=== PATIENT | female | born 1980 | race Asian ===

== ENCOUNTER → 2016-10-23 | Outpatient (CLI) | payer OTHER ==
[~2016-10-23] MED LIST: BUPR-79 PO; BUPRTAB51 PO; CARI350T28 PO; FLUT0.15; GUAI-13 PEG; LISD50CA4 PO; LORA-741 PO; NORE0.353 PO; OXYC-57 PO; PRENTAB26 PO; PRVHFAIN
[2016-10-23 14:36] LABS: HEMATOCRIT 36.4 % (37-47)
[2016-10-23 18:29] LABS: GTGD 50 Grams
[2016-10-23 18:42] LABS: URINE APPEARANCE CLEAR (CLEAR); URINE BILIRUBIN NEG (NEG); URINE COLOR DK YELLOW; URINE EPITHELIAL CELL AUTO >30 /lpf (0-5); URINE NITRITE NEG (NEG); URINE PH 6.5 (4.5-7.5); URINE SPECIFIC GRAVITY 1.023 (1.000-1.030); UROBILINOGEN NEG (NEG)
[2016-10-23 18:45] LABS: MANUAL MICROSCOPIC REQUIRED? NO; REVIEW REQ? NO
== END | disposition home or self-care (01) ==
LOC: C.LAB1850 14:01
PROVIDERS: ATTEND Obstetrics & Gynecology
DX: Z34.03 Encounter for supervision of normal first pregnancy, third trimester (principal)

== ENCOUNTER → 2016-11-20 | Outpatient (CLI) | payer OTHER ==
[2016-11-21 15:40] LABS: LEAD BLOOD LESS THAN 1 MCG/DL (0-9)
== END | disposition home or self-care (01) ==
LOC: C.LAB1850 10:29
PROVIDERS: ATTEND Obstetrics & Gynecology
DX: Z34.03 Encounter for supervision of normal first pregnancy, third trimester (principal); Z77.011 Contact with and (suspected) exposure to lead

== ENCOUNTER → 2016-12-18 | Outpatient (CLI) | payer OTHER | END | disposition home or self-care (01) | LOC: C.LABSPEC 13:23 | PROVIDERS: ATTEND Obstetrics & Gynecology | DX: Z34.03 Encounter for supervision of normal first pregnancy, third trimester (principal) ==

== ENCOUNTER 2017-01-08 05:47 | Inpatient (IN) | payer OTHER ==
--- NOTE | 2017-01-07 10:59 | PAT Medication Instructions ---
Service Date Jan 07, 2017. Current Home Medication List Bupropion (Wellbutrin Sr), 150 MG PO HS Guaifenesin (Tussin), 1 DOSE PEG PRN Multivit/Min/Iron/Fol Ac/Pren ( Vitamin), 1 TAB PO QPM Medication Instructions For Your Scheduled Surgery - Hold the following medications the morning of surgery: Guaifenesin (Tussin), 1 DOSE PEG PRN - Take the following medications as scheduled the night before surgery: Multivit/Min/Iron/Fol Ac/Pren ( Vitamin), 1 TAB PO QPM Guaifenesin (Tussin), 1 DOSE PEG PRN Bupropion (Wellbutrin Sr), 150 MG PO HS If you have any questions please call us at [phone] (Awa Herrera PA-C) or [phone] or [phone]
[2017-01-07 11:51] LABS: BASO % 0.2 %; BASO ABS # 0.02 K/uL (0-0.2); COMPLETE YES; EOS % 1.4 %; HEMATOCRIT 36.9 % (37-47); IG% 1.8 %; LYMPH % 16.6 %; LYMPH ABS # 1.69 K/uL (1.2-3.4); MEAN CELL VOLUME 81.5 fL (80-100); MEAN CORPUSCULAR HEMOGLOBIN 27.8 pg (25-34); MEAN CORPUSCULAR HGB CONC 34.1 g/dl (32-36); MEAN PLATELET VOLUME 11.4 fL (7.4-10.4); MONO % 5.3 %; NEUT % 74.7 %; PLATELET COUNT 177 K/uL (130-400); RED BLOOD COUNT 4.53 M/uL (4.2-5.4); WHITE BLOOD COUNT 10.18 K/uL (4.8-10.8)
--- NOTE | 2017-01-07 14:46 | HISTORY & PHYSICAL EXAMINATION ---
DATE OF ADMISSION: 01/08/2017 HISTORY OF PRESENT ILLNESS: Duane is . She is scheduled for repeat section on 01/08/2017. She has had 1 prior and does not wish to labor. She will be 39 weeks and 1 day at the time of her procedure. Her current has been uncomplicated with normal ultrasound and other testing. PAST HISTORY: Prior section in 2012 for failure to progress. PAST MEDICAL HISTORY: She has a history of anxiety and adult ADHD. MEDICATIONS: Adderall, Wellbutrin, ondansetron. DRUG ALLERGIES: CODEINE DERIVATIVES, more of a reaction as she gets vomiting. SOCIAL HISTORY: Nonsmoker, nondrinker. FAMILY HISTORY: Noncontributory. REVIEW OF SYSTEMS: Negative. PHYSICAL EXAMINATION: VITAL SIGNS: Stable. She is afebrile. Weight is 181. CHEST EXAMINATION: Clear. CARDIOVASCULAR EXAMINATION: Normal rate and rhythm. No audible murmur. ABDOMINAL EXAMINATION: Gravid. heart rate tones 140. CERVIX: Not checked. IMPRESSION AND PLAN: Repeat section. Discussed risks, benefits and alternatives. Discussed the option of labor. She declines this. Discussed risks including risks of bleeding, infection, injury to bowel, bladder, ureter, vessels, deep vein thrombosis and pulmonary embolus. Discussed increased chance of internal organ injury with prior sections if there are significant adhesions and discussed all of her questions as well. Thus, will make plans for low segment transverse section on 01/08/2017.
[2017-01-08] VITALS (16 sets, daily range): BP systolic 91–101; BP diastolic 50–60; PULSE 69–81; TEMP 36.5–36.8; O2SAT 92–100; Ht 165.1 cm; Wt 82.3 kg
[~2017-01-08] VITALS: Ht 165.1 cm; Wt 82.3 kg
[~2017-01-08 05:47] MED LIST changes: -BUPRTAB51 PO; -CARI350T28 PO; -FLUT0.15; -LISD50CA4 PO; -LORA-741 PO; -NORE0.353 PO; -OXYC-57 PO; -PRVHFAIN
[2017-01-08] MEDS ORDERED: CEFAZOLIN IV 2,000 MG in DEXTROSE 5% 50ML IV SCH (06:00)
[2017-01-08] MEDS ORDERED: LACTATED RINGER'S 1000ML 1,000 ML IV SCH ×2 (06:00→08:41)
[2017-01-08] MEDS ORDERED: CITRIC ACID/SODIUM CITRATE 15 ML UDC PO SCH (06:00)
[2017-01-08 06:09] LABS: MEAN CELL VOLUME 81.6 fL (80-100); MEAN CORPUSCULAR HEMOGLOBIN 27.4 pg (25-34); MEAN PLATELET VOLUME 10.9 fL (7.4-10.4); PLATELET COUNT 179 K/uL (130-400); RED BLOOD COUNT 4.41 M/uL (4.2-5.4); WHITE BLOOD COUNT 10.83 K/uL (4.8-10.8)
[2017-01-08 06:17] LABS: MEAN CORPUSCULAR HGB CONC 33.6 g/dl (32-36)
[2017-01-08] MEDS ORDERED: PRVHFAIN (06:29)
[2017-01-08] MEDS ORDERED: FLUT0.15 (06:29)
[2017-01-08 06:50] LABS: COMPLETE YES; EOSINOPHIL % 2.6 %; LYMPH ABS # 1.05 K/uL (1.2-3.4); LYMPHOCYTE % 9.7 %; MYELOCYTE % 1.8 %; NEUTROPHILS % 84.2 %
--- NOTE | 2017-01-08 07:15 | History & Physical Bridge Note ---
H&P Re-Evaluation Bridge Note: I have examined the patient, reviewed the History & Physical and in the interval since the performance of the History & Physical I have noted the following changes of clinical significance: No changes noted
[2017-01-08] MEDS ORDERED: OXYTOCIN INJ 10 UNITS/ML VIAL ONE (07:29)
[2017-01-08] MEDS ORDERED: MoRPHine SULFATE PF 1 MG/ML 10 ML AMP/VIAL ONE (07:30)
[2017-01-08] MEDS ORDERED: FENTANYL CITRATE INJ 50 MCG/1 ML 2 ML VIAL ONE (07:30)
[2017-01-08] MEDS ORDERED: PHENYLEPHRINE 100MCG/ML 5ML SYR ONE (08:00)
[2017-01-08] MEDS ORDERED: KETOROLAC TROMETHAMINE 30 MG/ML VIAL ONE (08:18)
--- NOTE | 2017-01-08 08:41 | [facility] Post Operative Brief Note ---
Immediate Operative Summary Operative Date Jan 08, 2017. Pre-Operative Diagnosis 1. Repeat Caesarean Post-Operative Diagnosis Same Procedure(s) Performed Repeat Lower Uterine Transverse Caesarean Section for the of a viable female child at 0805. Surgeon Dr[address] Le Nurse Aide Evaluator Surgeon(s) Dr. Castillo Estimated Blood Loss 500cc Findings Minimal adhesive disease at all Specimens 1. Placenta: Hold 2. Cord blood obtained 3. Venous and aterial cord blood gases obtained. Drains Justin Anesthesia Spinal Complication(s) None Disposition L&D
[2017-01-08] MEDS ORDERED: SUPERCREAM 0.870 % 15GM JAR EXT PRN (08:45)
[2017-01-08] MEDS ORDERED: LANOLIN OINT EXT PRN ×2 (08:45)
[2017-01-08] MEDS ORDERED: HYDROCORTISONE ACETATE 25 MG SUPP PR PRN (08:45)
[2017-01-08] MEDS ORDERED: BENZOCAINE 20% AER SPR 82.5 GM CAN EXT PRN (08:45)
[2017-01-08] MEDS ORDERED: MAGNESIUM HYDROXIDE SUSP 30 ML UDC PO PRN (08:45)
[2017-01-08] MEDS ORDERED: SENNA 8.6 MG TAB PO PRN (08:45)
[2017-01-08] MEDS ORDERED: LACTATED RINGER'S 1000ML 500 ML IV PRN (08:50)
[2017-01-08] MEDS ORDERED: SODIUM CHLORIDE 0.9% 1000ML 1,000 ML IV PRN (08:50)
[2017-01-08] MEDS ORDERED: NALOXONE HCL INJ 1 MG in SODIUM CHLORIDE 0.9% 1000ML 1,000 ML IV PRN (08:50)
[2017-01-08] MEDS ORDERED: NALOXONE HCL INJ 0.08 MG in SYRINGE 1.8 ML IV PRN (08:50)
[2017-01-08] MEDS ORDERED: DiphenhydrAMINE HCL 50 MG/ML VIAL IV PRN (09:00)
[2017-01-08] MEDS ORDERED: MoRPHine SULFATE 2 MG/ML CARP IV PRN (09:00)
[2017-01-08] MEDS ORDERED: MEPERIDINE HCL 25 MG/ML CARP IV PRN (09:00)
[2017-01-08] MEDS ORDERED: DC INTRASPINAL MORPHINE SCH (09:00)
[2017-01-08] MEDS ORDERED: KETOROLAC TROMETHAMINE 30 MG/ML VIAL IV. PRN (09:00)
[2017-01-08] MEDS ORDERED: NO NARCOTICS OR SEDATIVES SCH (09:00)
[2017-01-08] MEDS ORDERED: EpHEDrine SULFATE INJ 50 MG/ML AMP IV PRN (09:00)
[2017-01-08] MEDS ORDERED: METOCLOPRAMIDE HCL INJ 10 MG in SODIUM CHLORIDE 0.9% 50ML 50 ML IV PRN (09:00)
[2017-01-08] MEDS ORDERED: PROMETHAZINE HCL INJ 12.5 MG in SODIUM CHLORIDE 0.9% 50ML 50 ML IV PRN (09:00)
[2017-01-08] MEDS ORDERED: MoRPHine SULFATE PF 1 MG/ML 10 ML AMP/VIAL EPI PRN (09:00)
[2017-01-08] MEDS ORDERED: NALBUPHINE HCL INJ 10 MG/ML AMP IV PRN (09:00)
[2017-01-08] MEDS ORDERED: NALOXONE HCL 0.4 MG/1 ML VIAL/CARP IV PRN (09:00)
[2017-01-08] MEDS ORDERED: ONDANSETRON INJ 2 MG/ML 2 ML VIAL IV PRN (09:00)
--- NOTE | 2017-01-08 09:04 | OPERATIVE REPORT ---
DATE OF OPERATION: 01/08/2017 PREOPERATIVE DIAGNOSIS: Repeat section at term. POSTOPERATIVE DIAGNOSIS: Same. PROCEDURE: Low segment transverse section. SURGEON: Dr. Le. FAA CERTIFIED POWERPLANT MECHANIC: Dr. Walker, [facility] resident. ESTIMATED BLOOD LOSS: 500 mL FINDINGS: Minimal, if any, adhesive disease at all. SPECIMENS: Cord gases, cord blood. DRAINS: Justin catheter. ANESTHETIC: Spinal. COMPLICATIONS: None. DISPOSITION: Labor and delivery. Duane was given a spinal anesthetic, prepped and draped in supine position with leftward tilt. Justin catheter then placed. Pickups with teeth were used to check for adequacy of block. Full timeout performed and IV Ancef given. Block was adequate, so scalpel was used over the prior Pfannenstiel incision, cutting down through subcutaneous fat to the fascia in the midline, dissecting fascia laterally with the curved Reyes scissors and then fascia superiorly and inferiorly with the curved Reyes scissors. Peritoneal cavity was then entered by splitting the rectus muscles and entering in a superior location. Opening expanded to allow exposure, and bladder retractor and Metzenbaums used to dissect away the bladder flap and then bladder retractor repositioned. Scalpel used to incise the uterus in a low transverse fashion. Entry was done bluntly with the gas transfer operator's finger and opening extended with the gas transfer operator's finger in the usual fashion. Baby was delivered after clear fluid was noticed by flexion of the head and the pressure on the abdomen without difficulty. Mouth and the nares suctioned. Live vigorous female infant. Cord clamped and cut. Cord gases obtained. Placenta removed with gentle traction and then uterus exteriorized. IV Pitocin started by anesthesia. Moist lap used to ensure all placental material was removed and then hemostasis improved with IV Pitocin. Uterus closed in a 2-layer fashion, running 0 Monocryl locked and then second nonlocked 0 Monocryl. At this stage, after generous irrigation and suction of the cul-de-sac and bladder flap regions, uterus placed back in the peritoneal cavity. On reinspection, hemostasis was excellent. Fascia closed with 0 Vicryl, subcutaneous fat irrigated and closed with 3-0 Vicryl, skin closed with 4-0 subcuticular Monocryl and Steri-Strip. Urine was clear at the end of the procedure. Sponge and instrument counts correct. I attest to the content of the Intraoperative Record and any orders documented therein. Any exceptio ns are noted below.
[2017-01-08] MEDS: SIMETHICONE 80 MG CHEW PO SCH ×3 (09:28→19:56)
[2017-01-08] MEDS: OXYTOCIN INJ 20 UNITS in LACTATED RINGER'S 1000ML 1,000 ML IV SCH ×2 (13:37→21:51)
--- NOTE | 2017-01-08 14:37 | Anesthesiology Progress Note ---
Anesthesia Post Op Note Date & Time Jan 08, 2017 at 14:36 Vital Signs Pain Intensity: 0.0 Vital Signs Past 12 Hours Date Time Temp Pulse Resp B/P Pulse Ox O2 Delivery O2 Flow Rate FiO2 01/08/17 13:10 81 16 91/55 Room Air 01/08/17 13:00 20 95 01/08/17 12:07 36.6 69 16 96/57 Room Air 01/08/17 12:00 16 100 01/08/17 11:00 36.5 73 16 93/50 92 Room Air 01/08/17 11:00 92 Nasal Cannula 2.0 01/08/17 11:00 16 92 Notes Mental Status: alert / awake / arousable, participated in evaluation Pt Amnestic to Procedure: Yes Nausea / Vomiting: adequately controlled Pain: adequately controlled Airway Patency, RR, SpO2: stable & adequate BP & HR: stable & adequate Hydration State: stable & adequate Neuraxial Anesthesia: was administered, sensory block is resolving Anesthetic Complications: no major complications apparent
[2017-01-08] MEDS: DOCUSATE SODIUM 100 MG CAP PO SCH (19:56)
[2017-01-09] VITALS (7 sets, daily range): BP systolic 94–110; BP diastolic 56–73; PULSE 71–76; TEMP 35.9–36.6; O2SAT 96–98
[2017-01-09] MEDS ORDERED: DiphenhydrAMINE HCL 50 MG/ML VIAL IV PRN (02:00)
[2017-01-09] MEDS ORDERED: ONDANSETRON INJ 2 MG/ML 2 ML VIAL IV PRN (02:00)
[2017-01-09] MEDS ORDERED: PROMETHAZINE HCL INJ 25 MG in SODIUM CHLORIDE 0.9% 50ML 50 ML IV PRN (02:00)
[2017-01-09] MEDS ORDERED: KETOROLAC TROMETHAMINE 30 MG/ML VIAL IV. PRN (02:00)
[2017-01-09] MEDS ORDERED: MEPERIDINE HCL 50 MG/ML CARP IV PRN (02:00)
[2017-01-09] MEDS ORDERED: MEPERIDINE HCL 75 MG/ML CARP IV PRN (02:00)
[2017-01-09] MEDS: IBUPROFEN 600 MG TAB PO PRN ×5 (03:20→20:37)
[2017-01-09] MEDS: OXYCODONE/ACETAMINOPHEN 5-325 TAB PO PRN ×6 (03:20→22:42)
[2017-01-09 06:35] LABS: BASO % 0.1 %; BASO ABS # 0.01 K/uL (0-0.2); COMPLETE YES; EOS % 0.8 %; HEMATOCRIT 36.2 % (37-47); LYMPH % 11.5 %; LYMPH ABS # 1.29 K/uL (1.2-3.4); MEAN CORPUSCULAR HEMOGLOBIN 27.1 pg (25-34); MEAN CORPUSCULAR HGB CONC 32.6 g/dl (32-36); MEAN PLATELET VOLUME 11.2 fL (7.4-10.4); MONO % 4.6 %; PLATELET COUNT 171 K/uL (130-400); RED BLOOD COUNT 4.36 M/uL (4.2-5.4); WHITE BLOOD COUNT 11.26 K/uL (4.8-10.8)
--- NOTE | 2017-01-09 07:13 | Progress Note ---
Subjective Jan 09, 2017. Subjective conversation w/ patient, physical exam Ambulation: ambulating normally Voiding: no voiding problems Passing Gas: Yes Diet Tolerance: Regular Diet Lochia: Small Feeding Type: Breast Feeding Review of Systems Constitutional: No chills, No fever, No sweats Respiratory: No cough, No shortness of breath Cardiac: No chest pain, No claudication Objective Vital Signs Date Time Temp Pulse Resp B/P Pulse Ox O2 Delivery O2 Flow Rate FiO2 01/09/17 03:15 36.5 75 16 106/73 98 Room Air 01/09/17 02:00 16 98 01/09/17 01:00 18 97 01/09/17 00:00 18 97 01/09/17 00:00 97 Room Air 01/09/17 00:00 36.5 76 18 94/56 97 Room Air 01/08/17 23:00 18 97 01/08/17 22:00 18 97 01/08/17 21:00 18 95 01/08/17 20:00 18 98 01/08/17 20:00 36.8 71 18 95/60 98 Room Air 01/08/17 19:00 20 97 01/08/17 18:22 16 98 01/08/17 17:10 16 97 01/08/17 16:00 16 99 01/08/17 15:30 99 Room Air 2.0 01/08/17 15:30 36.8 74 18 101/60 99 Room Air 01/08/17 15:00 16 97 01/08/17 14:00 16 97 01/08/17 13:10 81 16 91/55 Room Air 01/08/17 13:00 20 95 01/08/17 12:07 36.6 69 16 96/57 Room Air 01/08/17 12:00 16 100 01/08/17 11:00 36.5 73 16 93/50 92 Room Air 01/08/17 11:00 92 Nasal Cannula 2.0 01/08/17 11:00 16 92 Physical Exam General Appearance: WELL-APPEARING, NO APPARENT DISTRESS Respiratory/Chest: lungs clear, no respiratory distress Cardiovascular: regular rate, rhythm, no murmur Fundus: Firm, Tender, Relation to Umbilicus (1 cm below) Incision Description: Clean, Dry & Intact Extremities: non-tender, no calf tenderness Laboratory Results Last 24 Hours Test 01/09/17 06:04 White Blood Count 11.26 K/uL Red Blood Count 4.36 M/uL Hemoglobin 11.8 g/dL Hematocrit 36.2 % Mean Corpuscular Volume 83.0 fL Mean Corpuscular Hemoglobin 27.1 pg Mean Corpuscular Hemoglobin Concent 32.6 g/dl Platelet Count 171 K/uL Mean Platelet Volume 11.2 fL Neutrophils (%) (Auto) 82.0 % Lymphocytes (%) (Auto) 11.5 % Monocytes (%) (Auto) 4.6 % Eosinophils (%) (Auto) 0.8 % Basophils (%) (Auto) 0.1 % Neutrophils # (Auto) 9.24 K/uL Lymphocytes # (Auto) 1.29 K/uL Monocytes # (Auto) 0.52 K/uL Eosinophils # (Auto) 0.09 K/uL Basophils # (Auto) 0.01 K/uL RDW Standard Deviation 46.9 fL RDW Coefficient of Variation 15.6 % Immature Granulocyte % (Auto) 1.0 % Immature Granulocyte # (Auto) 0.11 K/uL Assessment and Plan Post-Op Day#: 1 Continue Routine Care: s/p C- Section Day 1 - vitals reviewed and wnl - Hgb 11.8 today - blood: A+, GBS-, Rubella immune - patient itchy and receiving benadryl - CONTINUE ROUTINE POST C SECTION CARE Resident Physician Supervision Note: I interviewed and examined the patient. Discussed with Dr. Castillo and agree with findings and plan as documented in the note. Any exceptions or clarifications are listed here: [None] Documented By: Kody Le
[2017-01-09] MEDS: SIMETHICONE 80 MG CHEW PO SCH ×4 (08:11→19:32)
[2017-01-09] MEDS: PRENATAL VITAMIN TAB PO SCH (08:11)
[2017-01-09] MEDS: DOCUSATE SODIUM 100 MG CAP PO SCH ×2 (08:11→19:32)
[2017-01-09] MEDS: BENZONATATE 100MG CAP PO SCH ×3 (12:33→19:32)
[2017-01-09] MEDS: BuPROPion XL 150 MG TABCR PO SCH (20:44)
[2017-01-09] MEDS ORDERED: BISACODYL 5 MG TABEC PO ONE (22:00)
[2017-01-09] MEDS: ZOLPIDEM TARTRATE 5 MG TAB PO PRN (22:41)
[2017-01-10] MEDS: IBUPROFEN 600 MG TAB PO PRN ×5 (02:34→19:33)
[2017-01-10] MEDS: OXYCODONE/ACETAMINOPHEN 5-325 TAB PO PRN ×6 (02:35→21:53)
[2017-01-10 06:38] LABS: HEMATOCRIT 34.7 % (37-47)
--- NOTE | 2017-01-10 06:38 | Progress Note ---
Subjective Jan 10, 2017. Subjective conversation w/ patient, physical exam Ambulation: ambulating normally Voiding: no voiding problems Passing Gas: Yes Diet Tolerance: Regular Diet Lochia: Small Feeding Type: Breast Feeding Review of Systems Constitutional: No chills, No fever, No sweats Respiratory: No cough, No shortness of breath Cardiac: No chest pain, No claudication Female : No dysuria, No incontinence Objective Vital Signs Date Time Temp Pulse Resp B/P Pulse Ox O2 Delivery O2 Flow Rate FiO2 01/10/17 00:52 Room Air 01/09/17 23:40 35.9 76 18 110/65 96 Room Air 01/09/17 16:20 98 Room Air 01/09/17 08:10 Room Air 01/09/17 08:10 36.6 71 18 100/66 Room Air Physical Exam General Appearance: WELL-APPEARING, NO APPARENT DISTRESS Respiratory/Chest: lungs clear, no respiratory distress Cardiovascular: regular rate, rhythm, no murmur Fundus: Firm, Non-Tender, Relation to Umbilicus (2 cm below) Incision Description: Clean, Dry & Intact Laboratory Results Last 24 Hours Test 01/10/17 06:03 Assessment and Plan Post-Op Day#: 2 Continue Routine Care: s/p C- Section Day 2 - vitals reviewed and wnl - Hgb 11.8 yesterday - blood: A+, GBS-, Rubella immune - patient doing well clinically - encourage breast feeding, encourage ambulation and monitor lochia - CONTINUE ROUTINE POST C SECTION CARE
[2017-01-10 07:30] VITALS: O2SAT 97
[2017-01-10] MEDS: SIMETHICONE 80 MG CHEW PO SCH ×4 (08:16→20:02)
[2017-01-10] MEDS: BENZONATATE 100MG CAP PO SCH ×3 (08:17→20:02)
[2017-01-10] MEDS: DOCUSATE SODIUM 100 MG CAP PO SCH ×2 (08:18→20:02)
[2017-01-10] MEDS: PRENATAL VITAMIN TAB PO SCH (08:18)
[2017-01-10] MEDS ORDERED: BISACODYL 10 MG SUPP PR PRN (08:45)
[2017-01-10 15:30] VITALS: BP 106/73; PULSE 82; TEMP 36.8
[2017-01-10] MEDS ORDERED: NURSING VERBAL MED ORDER ONE (18:15)
[2017-01-10] MEDS ORDERED: OXYCODONE/ACETAMINOPHEN 5-325 TAB PO ONE (18:30)
[2017-01-10] MEDS: BuPROPion XL 150 MG TABCR PO SCH (20:35)
[2017-01-10] MEDS: ZOLPIDEM TARTRATE 5 MG TAB PO PRN (21:52)
[2017-01-11 00:55] VITALS: O2SAT 98
[2017-01-11] MEDS: IBUPROFEN 600 MG TAB PO PRN ×4 (01:08→15:39)
[2017-01-11] MEDS: OXYCODONE/ACETAMINOPHEN 5-325 TAB PO PRN ×4 (01:49→15:40)
[2017-01-11 07:30] VITALS: BP 118/72; PULSE 76; TEMP 36.5; O2SAT 97
[2017-01-11] MEDS: BENZONATATE 100MG CAP PO SCH ×2 (07:42→14:02)
[2017-01-11] MEDS: SIMETHICONE 80 MG CHEW PO SCH ×3 (07:42→17:40)
[2017-01-11] MEDS: PRENATAL VITAMIN TAB PO SCH (07:42)
[2017-01-11] MEDS: DOCUSATE SODIUM 100 MG CAP PO SCH (07:42)
--- NOTE | 2017-01-11 08:10 | Progress Note ---
Subjective Jan 11, 2017. Subjective conversation w/ patient, physical exam Ambulation: ambulating normally Voiding: no voiding problems Passing Gas: Yes Diet Tolerance: Regular Diet Lochia: Moderate Feeding Type: Breast Feeding Pain: controlled with meds Review of Systems Constitutional: No problem reported Respiratory: No problem reported Cardiac: No problem reported Breast: No problem reported Abdomen: No problem reported Female : No problem reported Objective Vital Signs Date Time Temp Pulse Resp B/P Pulse Ox O2 Delivery O2 Flow Rate FiO2 01/11/17 00:55 98 Room Air 01/10/17 15:30 Room Air 01/10/17 15:30 36.8 82 20 106/73 Room Air Physical Exam General Appearance: WELL-APPEARING, NO APPARENT DISTRESS Respiratory/Chest: no respiratory distress Cardiovascular: regular rate, rhythm Abdomen: non tender, soft Fundus: Firm Incision Description: Clean, Dry & Intact Extremities: normal inspection Assessment and Plan Post-Op Day#: 3 Continue Routine Care: POD#3 RLTCS doing well Discharge to home today, patient agreeable. Teaching done. Followup in office 6w.
[2017-01-11] MEDS ORDERED: OXYC-57 PO ×2 (08:11→14:08)
--- NOTE | 2017-01-11 08:12 | Discharge Instructions ---
Discharge Instructions Date of Service Jan 11, 2017. Admission Reason for Admission: Repeat Discharge Discharge Diagnosis / Problem: postop csection Discharge Goals Goal(s): Routine recovery after Activity Recommendations Activity Limitations: per Instructions/Follow-up section . Instructions / Follow-Up Instructions / Follow-Up ACTIVITY RECOMMENDATIONS: * Gradual return to full activity over the next 2-3 weeks. * No lifting - nothing heavier than baby over the next 2-3 weeks. * Do not engage in vigorous exercise, sexual activity or sports until cleared by your physician. * Do not drive or operate any motorized equipment until cleared by your physician. * You may shower/bathe daily. MEDICATIONS: For discomfort or pain, you may use Acetaminophen (Tylenol), Ibuprofen (Advil), or Naproxen (Aleve) following the package directions. For constipation you may use Colace following the package directions. BREAST CARE: If you are not breast feeding: * Wear a supportive bra 24 hours a day for one to two weeks. * Avoid stimulating your breasts and nipples as much as possible during the first few weeks after delivery. * When taking a shower, have the warm water hit your back, not breasts. * When your breasts feel full, apply ice packs. Usually three to four times a day helps ease the discomfort. * Take a mild pain medication (Tylenol / Motrin) when you are uncomfortable. If breast feeding: * Use breast milk to lubricate nipples. Lansinoh cream may be used for sore nipples. You do not need to remove cream prior to breast feeding. If using a different brand of cream, check the label for directions regarding removal of cream prior to nursing. * Wear a supportive bra. * If having problems with breasts or breast feeding, call a marketing consultant or your health care provider. SPECIAL CARE INSTRUCTIONS: When you are discharged from the hospital, it is important for you to follow the instructions listed below: * During the first week at home, you should be able to care for yourself and your baby. In addition, the usual light household activities are encouraged. * Limit your activities to the way you feel. Do not try to clean the house or move furniture. Be sensible. * If you actively engage in sports and have done so up until the time of your delivery, you may resume these activities as soon as you feel able. This may take up to one month or even longer. Use good judgment. * Continue to take your vitamins for at least six weeks after the of your baby. * Your diet need not be limited unless you were on a special diet before your delivery. Breast-feeding mothers need around 2500 calories per day and at least 64-80 ounces of fluid per day (8 to 10 glasses). * You should eat foods from the four major food groups. Crash diets or fad diets are to be avoided. Eating lean meats, fresh fruits and vegetables, low-fat dairy products, high fiber foods and a regular exercise program, will help you get back to your pre- weight without putting your health at risk. * Constipation is sometimes a problem after delivery. Take a mild laxative as needed. If breast feeding, Milk of Magnesia is acceptable to use. You may use a suppository or Fleets enema. * A daily shower or tub bath is suggested. Wash incision daily with warm soapy water and pat dry. It doesn't need to be covered unless drainage is present. * A bloody vaginal discharge will usually continue until around four weeks . A small amount of bleeding may continue for as long as six weeks. Vaginal discharge changes from the bright red bleeding after delivery to pink then brownish and finally yellowish-pink before becoming white and disappearing. * Bleeding may increase with activity. Your first period may come in 4-8 weeks. If you are breast feeding, your period may be delayed even longer. * Becenti (sex) can begin whenever both you and your partner feel comfortable and do not have any form of genital infection. It is recommended that you wait at least six weeks for internal and external healing to occur. If you have questions, please talk to your health care practitioner. A condom should be used to prevent infection and . * Foreplay, gentle intercourse and lubrication is very important the first several times to prevent pain. A water-based lubricant such as K-Y jelly or Astroglide may be used. * If you have RH negative blood and your baby is RH positive, you will receive RHOGAM by injection prior to discharge. The nurse will give you a card to keep with you that has the date and place that you received RHOGAM after delivery. * During your care, you had a Rubella screen done to check for the presence of rubella antibodies in your blood. If your test was negative, you will receive a Rubella vaccine prior to discharge. This vaccine may cause a fever, soreness at the injection site and flu-like symptoms. If these symptoms persist, notify your health care practitioner. is not advised for one month after a Rubella vaccine. * Verbalizes understanding of car seat law as reviewed with patient nursing. * Car Seat hand-out given and reviewed with patient by nursing. * Shaken baby information reviewed with patient by nursing. Call you doctor if: * Heavy bleeding (saturating several pads an hour) or passing clots the size of your fist. * A fever >101 degrees F (38.3 degrees C) on two occasions four hours apart and /or chills. * Unusual pain in the pelvic or vaginal areas. * Call the doctor for any increased redness, drainage or swelling around the incision and any pain unrelieved by prescribed pain medication. * "Baby Blues" lasting longer than two weeks. If you have any questions or concerns, call your health care practitioner at . FOLLOW UP VISIT: * Please call the office at to schedule a 6 week examination. It is important you keep this appointment. It is important for you to make arrangements for either yearly or twice yearly check-ups thereafter. Current Hospital Diet Patient's current hospital diet: Regular OB Diet Discharge Diet Recommended Diet: Regular OB Diet Procedures Procedures Performed: Repeat Lower Uterine Transverse Caesarean Section for the of a viable female child at 0805. Pending Studies Studies pending at discharge: no Medical Emergencies . Who to Call and When: Medical Emergencies: If at any time you feel your situation is an emergency, please call [phone] immediately. . Non-Emergent Contact Non-Emergency issues call your: Primary Care Provider, [employer] Research Programs Director . . "Provider Documentation" section prepared by Tosin River. VTE Core Measure Inpt VTE Proph given/why not?: SCD's
[2017-01-11 15:30] VITALS: BP 110/73; PULSE 81; TEMP 36.8
[2017-01-11 18:30] VITALS: BP_DIAS 73; PULSE 81; TEMP 36.8
--- NOTE | 2017-01-14 11:42 | DISCHARGE SUMMARY ---
Duane had a repeat section. This was performed on 01/08/2017. Operative note is within the system. By 01/11/2017 she met discharge criteria. At that time she was assessed by Dr. River and the patient was ambulating, tolerating an oral diet, passing flatus, minimal bleeding and was breast feeding well. Her pain was well controlled with medication. PHYSICAL EXAMINATION: VITAL SIGNS: Stable. She was afebrile. CHEST EXAMINATION: Clear. CARDIOVASCULAR EXAMINATION: Normal rate and rhythm. ABDOMEN: Revealed a nontender abdomen. Fundus was firm. Incision was clean, dry and intact. EXTREMITY EXAMINATION: Negative. PLAN: [facility]. Given prescriptions for pain medication and told to follow up in the office.
== END 2017-01-11 18:45 | disposition home or self-care (01) | DRG 766 ==
LOC: C.LD 05:47 → EDSTATUS 07:30 → C.OBG 11:08
PROVIDERS: ADMIT Obstetrics & Gynecology; ATTEND Obstetrics & Gynecology
PROC: 10D00Z1 Extraction of Products of Conception, Low, Open Approach (ICD-10-PCS; principal; 2017-01-08 07:30)
DX: O34.211 Maternal care for low transverse scar from previous cesarean delivery (principal); O99.344 Other mental disorders complicating childbirth; O90.89 Other complications of the puerperium, not elsewhere classified; F90.9 Attention-deficit hyperactivity disorder, unspecified type; L29.9 Pruritus, unspecified; F41.9 Anxiety disorder, unspecified; Z37.0 Single live birth; Z3A.39 39 weeks gestation of pregnancy